=== PATIENT | male | born 1955 | race Caucasian/White ===

== ENCOUNTER 2022-11-28 06:21 | Day surgery (SDC) | payer MEDICARE, BC ==
[2022-11-26 13:06] VITALS: BMI 35.1
[~2022-11-28 06:21] MED LIST: Fluorouracil 100 MG, Enoxaparin 25 MG, EPINEPHrine 0.3 MG in Ophthalmic Irrigation Solu... IRR SCH
[2022-11-28] MEDS ORDERED: Midazolam HCl 2 mg/2 ml Vial ONE (06:33)
[2022-11-28] MEDS ORDERED: fentaNYL 50 mcg/mL 1 mL Vial ONE (06:33)
[2022-11-28] MEDS ORDERED: PHENYLephrine 2.5% Ophth Soln 15 ml Bottle ONE (07:06)
[2022-11-28] MEDS ORDERED: Cyclopentolate 1% Opth Drop 2 ML BOT ONE (07:06)
[2022-11-28] MEDS ORDERED: Triamcinolone 40 MG/ML VIAL ONE (07:43)
[2022-11-28] MEDS ORDERED: Bupivacaine 0.75% 10 ML VIAL ONE (07:43)
[2022-11-28] MEDS ORDERED: PROPOFOL 200 MG/20 ML VIAL ONE (07:43)
[2022-11-28] MEDS ORDERED: CEFAZOLIN 1 GM VIAL ONE (07:43)
[2022-11-28] MEDS ORDERED: Maxitrol 0.1% Opth Oint 3.5 GM TUBE ONE (07:43)
[2022-11-28] MEDS ORDERED: Lidocaine 1% PF 5 ML VIAL ONE (07:43)
[2022-11-28] MEDS ORDERED: Lidocaine 4% PF 5 ML AMP ONE (07:43)
== END 2022-11-28 09:00 | disposition home or self-care (01) ==
LOC: SDC 06:21
PROVIDERS: ATTEND Ophthalmology Retina Specialist
PROC: 08943ZZ Drainage of Right Vitreous, Percutaneous Approach (ICD-10-PCS; principal; 2022-11-28)
DX: H43.391 Other vitreous opacities, right eye (principal)
CPT/HCPCS: J0171; J0690; J1650; J2250; J2704; J3010; J3301; J3490; J9190